=== PATIENT | female | born 1975 | race African-American/Black ===

== ENCOUNTER 2017-03-30 16:15 | Inpatient (IN) | payer OTHER ==
--- NOTE | 2017-03-30 16:44 | HP ---
Past Medical History - Admission Chief Complaint: impaction History of Present Illness: Pt is a 41 y/o female with SIUP at 38.6 weeks here for elective IOL and treatment of fecal impaction. Pt has been on stool softeners since approx 32 weeks and a bowel regimen of Miralax since 03/19. Pt was seen as an outpatient on 03/19 and given several enemas and attempt at disimpaction was completed under Stadol sedation. A minimal amount of stool was able to be removed. Since that time, the patient has developed large hemorrhoids and is still in significant pain from the impacted stool. Pt also AMA, otherwise itself uncomplicated. History Source: Patient Limitations to Obtaining History: No Limitations - Past Medical History Cardiovascular: No: AFIB, HTN, OR Pulmonary: No: Asthma, COPD Gastrointestinal: Yes: Constipation Hepatobiliary: No: Hepatitis B, Hepatitis C Reproductive: No: Polycystic Ovary Syndrome ...: 4 ...Para: 2 ...Term: 2 ...Induced : 1 ... Weeks Gestation by Dates: 38.6 Heme/Onc: No: Anemia Infectious Disease: No: AIDS, HIV Psych: No: Bipolar, Depression, Panic - Past Surgical History Past Surgical History: Yes: None Hx Myomectomy: No Hx Transabdominal Cerclage: No - Smoking History Smoking history: Never smoked Aproximately how many cigarettes per day: 0 - Alcohol/Substance Use Hx Alcohol Use: Yes (rarely) History of Substance Use: reports: None - Social History Usual Living Arrangement: Yes: With Spouse History of Recent Travel: No Home Medications - Allergies Allergies/Adverse Reactions: Allergies Allergy/AdvReac Type Severity Reaction Status Date / Time No Known Allergies Allergy Verified 03/30/17 16:52 - Home Medications Home Medications: Ambulatory Orders Vit/Iron Fumarate/FA [ Tablet] 1 tab PO DAILY 03/30/17 Review of Systems - Review of Systems Constitutional: reports: No Symptoms Eyes: reports: No Symptoms HENT: reports: No Symptoms Neck: reports: No Symptoms Cardiovascular: reports: No Symptoms Respiratory: reports: No Symptoms Gastrointestinal: reports: No Symptoms Genitourinary: reports: No Symptoms Breasts: reports: No Symptoms Reported Musculoskeletal: reports: No Symptoms Integumentary: reports: No Symptoms Neurological: reports: No Symptoms Endocrine: reports: No Symptoms Hematology/Lymphatic: reports: No Symptoms Psychiatric: reports: No Symptoms Physical Exam - Maternity Constitutional: Yes: Well Nourished, No Distress, Calm Eyes: Yes: Conjunctiva Clear, EOM Intact HENT: Yes: Atraumatic, Normocephalic Neck: Yes: Supple, Trachea Midline Cardiovascular: Yes: Regular Rate and Rhythm - Abdominal Exam/OB Number of Fetuses: Single Presentation: Vertex Contractions: Yes Regularity: Irregular Intensity: Mild/Mod Category: I Accelerations: Uniform Decelerations: None - Vaginal Exam/OB Vaginal Bleediing: No Amniotic Membrane Status: Intact Presentation: Vertex/Position - Physical Exam Edema: No Psychiatric: Yes: Alert, Oriented Hemorrhage Risk Assessment - Risk Factors Medium Risk Factors: Yes: None High Risk Factors: Yes: None Risk Score: 1 Risk Level: Medium Risk Assessment/Plan 41 y/o with SIUP at 38.6 weeks, here for induction of labor, also with severe constipation/stool impaction - FHTS cat 1 - stool impaction/constipation - discussed options with patient including attempt at disimpaction under epidural, delivery and disimpaction afterwards, possible delivery, mineral oil enemas overnight and start induction in the morning - pt and discussing. Will also consult GI. - GBS negative - to start IV fluids
[2017-03-30 17:14] VITALS: BMI 32.2
[2017-03-30] MEDS: DEXTROSE 5%-LACTATED RINGERS 1,000 ML IV SCH (18:00)
[2017-03-30] MEDS ORDERED: BUTORPHANOL TARTRATE 1 MG/ML VIAL IM PRN (18:15)
[2017-03-30] MEDS ORDERED: PROMETHAZINE HCL 25 MG/1 ML VIAL IVPB PRN ×2 (18:17→18:19)
--- NOTE | 2017-03-30 18:28 | PN ---
Progress Note (short form) - Note Progress Note: After discussion with patient and , pt desires to try enemas overnight tonight with pain medication/analgesia if needed and start induction in the a.m. Will start with soap suds enema, if no results, to try mineral oil. Stadol/ Phenergan PRN. Start IOL in a.m.
[2017-03-30 19:20] LABS: BASOPHIL 0.3 % (0-2.0); EOSINOPHIL 0.1 % (0-4.5); MCH 30.2 pg (25.7-33.7); MCHC 34.3 g/dl (32.0-36.0); MEAN CELL VOLUME 88.3 fl (80-96); MEAN PLT VOLUME 8.2 fl (7.5-11.1); NEUTROPHILS 69.7 % (42.8-82.8); PLATELET COUNT 179 K/MM3 (134-434); RDW 13.5 % (11.6-15.6)
[2017-03-30 19:35] LABS: INR 0.95 (0.82-1.09); PROTHROMBIN TIME (PATIENT) 10.7 SEC (9.98-11.88)
[2017-03-30 19:38] LABS: ACTIVATED PTT 28.5 SECONDS (26.9-34.4)
[2017-03-30 20:00] LABS: ANION GAP 10 (8-16); CALCIUM 8.4 mg/dL (8.5-10.1); CO2 21 mmol/L (21-32); CREATININE 0.4 mg/dL (0.55-1.02); GLUCOSE,RANDOM 64 mg/dL (74-106)
[2017-03-30] MEDS ORDERED: BUTORPHANOL TARTRATE 1 MG/ML VIAL ONE ×2 (20:45→20:46)
[2017-03-30] MEDS ORDERED: PROMETHAZINE HCL 25 MG/1 ML VIAL ONE (20:46)
[2017-03-31] MEDS: DEXTROSE 5%-LACTATED RINGERS 1,000 ML IV SCH (07:15)
[2017-03-31] MEDS: ELECTROLYTE-148 SOLN 1,000 ML IV SCH ×4 (08:30→16:44)
[2017-03-31] MEDS ORDERED: FENTANYL/BUPIVACAINE/NS/PF - PCEA - 50 ML DISP.SYRIN EP ONE (08:32)
--- NOTE | 2017-03-31 08:36 | PN ---
Progress Note (short form) - Note Progress Note: Pt failed soap suds enema last night and refused mineral oil enema. Pt still in a lot of discomfort rectally and cannot lay flat on her back or sit. Pt having irregular contractions overnight. Discussed case with anesthesia who will administer an epidural at this time, will attempt another enema and evacuatio of rectum, then start labor induction.
[2017-03-31] MEDS: FENTANYL/BUPIVACAINE/NS/PF - PCEA - 50 ML DISP.SYRIN EP SCH ×2 (08:45→13:15)
[2017-03-31] MEDS ORDERED: OXYTOCIN 15 UNITS/ LR 250 ML 15 UNIT/250 ML INFUS.BAG IVPB ONE (11:30)
[2017-03-31] MEDS ORDERED: OXYTOCIN 15 UNITS/ LR 250 ML 15 UNIT/250 ML INFUS.BAG IVPB SCH (11:30)
--- NOTE | 2017-03-31 13:38 | PN ---
Progress Note (short form) - Note Progress Note: Pt received epidural, after adequate pain relief, a mineral oil enema was administered and via transvaginal pressure the lower rectum was evacuated. A large amount of stool was evacuated. After evacuation, the cervix was examined and found to be 2-3cm dilated and soft. head palpated, station -3. Pt comfortable. Will await monitor baby and mom for 1-2 hours then start IOL with pitocin.
--- NOTE | 2017-03-31 13:41 | PN ---
Ante-Partal Exam - Subjective Subjective: Pt comfortable with epidural Vital Signs: Vital Signs Temperature 98.3 F 03/31/17 13:00 Pulse Rate 89 03/31/17 13:15 Respiratory Rate 20 03/31/17 13:15 Blood Pressure 93/70 03/31/17 13:15 O2 Sat by Pulse Oximetry (%) 99 03/31/17 13:15 Bleeding: No Headache: No Visual changes: No Right upper quadrant pain: No Pain (scale 1-10): 0 - Contractions Contractions: Yes Regularity: Irregular Intensity: Mild/Mod Monitor Mode: External - Exam during Labor Heart Rate: 130 Variability: Minimal Category: I Monitor Accelerations: Present Monitor Decelerations: None (had variable decelerations earlier, have resolved with resolution of hypotension) Exam: Vaginal Dilatation (cm): 3 Effacement (%): 50 Amniotic Membrane Status: Ruptured (AROM for clear fluid at this examination) Presentation: Vertex Station: -3 - Assessment/Plan Assessment/Plan: 41 y/o P2 with SIUP at 39 weeks, s/p fecal disimpaction and now IOL - FHTS cat 1 - IOL, s/p AROM, for pitocin as needed - GBS negative - anticipate - large hemorrhoid and ? anal fissure noted s/p disimpaction - will consult GI post
--- NOTE | 2017-03-31 13:59 | PN ---
Progress Note (short form) - Note Progress Note: GI NOte: Communicated with Dr Swift. She has already disempacted the patient who is currently being induced. She will withdraw this consult and recall us as needed.
--- NOTE | 2017-03-31 17:59 | PN ---
Ante-Partal Exam - Subjective Subjective: Pt comfortable, tolerating contractions. Vital Signs: Vital Signs Temperature 98.0 F 03/31/17 15:00 Pulse Rate 83 03/31/17 17:15 Respiratory Rate 20 03/31/17 17:15 Blood Pressure 111/67 03/31/17 17:15 O2 Sat by Pulse Oximetry (%) 99 03/31/17 17:15 Bleeding: Yes Bleeding Description: Mild Headache: No Visual changes: No Right upper quadrant pain: No Pain (scale 1-10): 0 - Contractions Contractions: Yes Regularity: Regular Monitor Mode: External - Exam during Labor Heart Rate: 130 Variability: Moderate Category: I Monitor Accelerations: Present Monitor Decelerations: None Exam: Vaginal Dilatation (cm): 4 Effacement (%): 50 Amniotic Membrane Status: Ruptured (AROM for clear fluid) Presentation: Vertex Station: -3 - Assessment/Plan Assessment/Plan: 41 y/o with SIUP, 39 weeks, IOL - FHTS cat 1 - IOL, s/p AROM, on pitocin - GBS negative - continue active management of labor
--- NOTE | 2017-03-31 21:12 | PN ---
Ante-Partal Exam - Subjective Subjective: Pt comfortable. Vital Signs: Vital Signs Temperature 98.3 F 03/31/17 20:00 Pulse Rate 76 03/31/17 20:30 Respiratory Rate 20 03/31/17 20:30 Blood Pressure 108/68 03/31/17 20:30 O2 Sat by Pulse Oximetry (%) 100 03/31/17 19:15 Bleeding: Yes Bleeding Description: Mild Headache: No Visual changes: No Right upper quadrant pain: No Pain (scale 1-10): 0 - Contractions Contractions: Yes Regularity: Regular Intensity: Mild/Mod - Exam during Labor Heart Rate: 130 Variability: Moderate Category: I Monitor Accelerations: Present Monitor Decelerations: None Exam: Vaginal Dilatation (cm): 5 Effacement (%): 70 Amniotic Membrane Status: Ruptured Presentation: Vertex Station: -2 - Assessment/Plan Assessment/Plan: Continue active management with pitocin anticipate
[2017-03-31] MEDS ORDERED: OXYTOCIN 20 UNITS in 0.9% NS 20 UNIT/1,000 ML INFUS.BAG IV ONE (23:13)
--- NOTE | 2017-04-01 | PN ---
Delivery - Delivery Vaginal Delivery: No Problems Type of Anesthesia: Epidural Episiotomy/Laceration: None EBL (cc): 300 Delivery, Single - Stages of Labor Date of Delivery: 03/31/17 Time of Delivery: 23:45 Date Placenta Delivered: 03/31/17 Time Placenta Delivered: 23:50 Placenta: Yes: Spontaneous - Condition of Senior Auditor/Manager Corporate Responsibility Present: No Gender: Male Position: Left, OA - 1 Minute Total Score: 9 5 Minutes Total Score: 9 - Feeding Plan Initial Plan: Elected not to breastfeed exclusively throughout hospitalization Remarks - Remarks Remarks: Uncomplicated of baby boy from KEVAN position across intact perineum anterior shoulder (right) delivered with ease along with remainder of cord clamped and cut mouth and nose bulb suctioned no laceration noted baby to well baby nursery mom stable sponge count correct
[2017-04-01] MEDS ORDERED: WITCH HAZEL 50% (TUCKS) 40 PAD/JAR PAD TP PRN (00:01)
[2017-04-01] MEDS ORDERED: BISACODYL 10 MG SUPP.RECT RC PRN (00:01)
[2017-04-01] MEDS ORDERED: BENZOCAINE 20% 57 GM BOTTLE TP PRN (00:01)
[2017-04-01] MEDS ORDERED: BENZOCAINE 28 GM HEMORRHOIDAL OINTMENT TP PRN (00:01)
[2017-04-01] MEDS ORDERED: METHYLERGONOVINE MALEATE 0.2 MG/1 ML AMP IM PRN (00:01)
[2017-04-01] MEDS ORDERED: HYDROCORTISONE 2.5% TOPICAL CREAM 30 GM TUBE PR PRN ×2 (00:03→08:00)
[2017-04-01] MEDS ORDERED: LIDOCAINE 2.5%/PRILOCAINE 2.5% (5 Gram/TUBE) TP PRN (00:05)
[2017-04-01] MEDS ORDERED: OXYTOCIN 20 UNITS in 0.9% NS 20 UNIT/1,000 ML INFUS.BAG IV SCH (00:15)
[2017-04-01] MEDS ORDERED: oxyCODONE HCL 5 MG TABLET ONE (01:19)
[2017-04-01] MEDS: oxyCODONE HCL 5 MG TABLET PO PRN (01:20)
[2017-04-01] MEDS ORDERED: OXYTOCIN 20 UNITS in 0.9% NS 20 UNIT/1,000 ML INFUS.BAG IV ONE (01:42)
[2017-04-01] MEDS: IBUPROFEN 600 MG TABLET (FP) PO PRN ×4 (04:31→21:22)
[2017-04-01] MEDS: ACETAMINOPHEN 325 MG TABLET (FP) PO PRN ×4 (04:31→21:22)
--- NOTE | 2017-04-01 06:47 | PN ---
Post Progress Note - Subjective Subjective: Pt seen/evaluated and doing well. Pain overall stable/controlled. C/o discomfort 2/2 hemorrhoids otherwise feeling well. Denies CP/SOB/F/C/MONAE. Type of Delivery: Vital Signs: Vital Signs Temperature 99.5 F 04/01/17 02:15 Pulse Rate 85 04/01/17 02:15 Respiratory Rate 20 04/01/17 02:15 Blood Pressure 118/66 04/01/17 02:15 O2 Sat by Pulse Oximetry (%) 100 04/01/17 01:30 Uterus: Yes: Fundus Firm, Fundus below umbilicus, Non-tender Abdomen/GI: Yes: Abdomen soft, Passing flatus. No: Abdominal Distention, Tender Lochia: Yes: Rubra Lochia, amount: Moderate (but stable and decreasing) Extremities: Yes: Calves non-tender. No: Edema Perineum: Yes: Intact Activity: Ambulating - Labs Labs: CBC WBC 5.0 K/mm3 (4.0-10.0) 03/30/17 18:00 RBC 3.92 M/mm3 (3.60-5.2) 03/30/17 18:00 Hgb 11.9 GM/dL (10.7-15.3) 03/30/17 18:00 Hct 34.6 % (32.4-45.2) 03/30/17 18:00 MCV 88.3 fl (80-96) 03/30/17 18:00 MCH 30.2 pg (25.7-33.7) 03/30/17 18:00 MCHC 34.3 g/dl (32.0-36.0) 03/30/17 18:00 RDW 13.5 % (11.6-15.6) 03/30/17 18:00 Plt Count 179 K/MM3 (134-434) 03/30/17 18:00 MPV 8.2 fl (7.5-11.1) 03/30/17 18:00 Neutrophils % 69.7 % (42.8-82.8) 03/30/17 18:00 Lymphocytes % 21.0 % (8-40) 03/30/17 18:00 Monocytes % 8.9 % (3.8-10.2) 03/30/17 18:00 Eosinophils % 0.1 % (0-4.5) 03/30/17 18:00 Basophils % 0.3 % (0-2.0) 03/30/17 18:00 Problem List - Problems (1) Normal vaginal delivery Code(s): O80 - ENCOUNTER FOR FULL-TERM UNCOMPLICATED DELIVERY (2) Hemorrhoids affecting or puerperium with complication Code(s): ECV3999 - (3) Hemorrhoids Code(s): K64.9 - UNSPECIFIED HEMORRHOIDS Assessment/Plan 41 y/o PPD#1 s/p normal , doing well - AFVSS - CBC this a.m. pending - regular diet, PO pain meds - hemorrhoids 2/2 significant constipation and need for bowel disimpaction prior to delivery- continue with bowel regimen and topical lidocaine/ hydrocoritsone for discomfort. If not improved in a.m. or if cause significant pain will have GI consulted for management
[2017-04-01] MEDS: MINERAL OIL 30 ML UNIT-DOSE CUP PO SCH (10:15)
[2017-04-01] MEDS: PRENATAL VITAMINS W/ FOLIC ACID TABLET (FP) PO SCH (10:34)
[2017-04-01 10:45] LABS: BASOPHIL 0.2 % (0-2.0); EOSINOPHIL 0.1 % (0-4.5); MCH 29.4 pg (25.7-33.7); MCHC 33.4 g/dl (32.0-36.0); MEAN PLT VOLUME 8.5 fl (7.5-11.1); NEUTROPHILS 81.5 % (42.8-82.8); PLATELET COUNT 147 K/MM3 (134-434); RDW 13.6 % (11.6-15.6); WHITE BLOOD COUNT 11.1 K/mm3 (4.0-10.0)
[2017-04-02] MEDS: ACETAMINOPHEN 325 MG TABLET (FP) PO PRN (02:55)
[2017-04-02] MEDS: IBUPROFEN 600 MG TABLET (FP) PO PRN (02:55)
--- NOTE | 2017-04-02 09:15 | DS ---
Physical Exam-FORKLIFT DRIVER Vital Signs: Vital Signs Temperature 98.2 F 04/01/17 21:41 Pulse Rate 92 H 04/01/17 21:41 Respiratory Rate 20 04/01/17 21:41 Blood Pressure 107/67 04/01/17 21:41 O2 Sat by Pulse Oximetry (%) 100 04/01/17 01:30 Constitutional: Yes: Well Nourished, No Distress Cardiovascular: Yes: WNL Gastrointestinal: Yes: WNL, Normal Bowel Sounds ...Rectal Exam: Yes: WNL ....Post : Yes: Uterus firm, Uterus non-tender Breast(s): Yes: WNL Musculoskeletal: Yes: WNL Extremities: Yes: WNL Edema: No Neurological: Yes: WNL, Alert, Oriented Labs: CBC, BMP 04/01/17 09:05 03/30/17 18:00 Delivery - Delivery Vaginal Delivery: No Problems Type of Anesthesia: Epidural Episiotomy/Laceration: None EBL (cc): 300 Delivery, Single - Stages of Labor Date 1st Stage Initiatied: 03/31/17 Time 1st Stage Initiated: 13:25 Date 2nd Stage Initiated: 03/31/17 Time 2nd Stage Initiated: 23:30 Date of Delivery: 03/31/17 Time of Delivery: 23:45 Time Placenta Delivered: 23:50 Placenta: Yes: Spontaneous - Condition of Infant Day Habilitation Supervisor/Ct Scan Special Procedures Technologist Present: No Infant Gender: Male Weight: 7 lb 8 oz Position: Left, OA Total Hours ROM (Hrs/Mins): 10 HOURS/20 MINUTES - 1 Minute Total Score: 9 5 Minutes Total Score: 9 - Feeding Plan Initial Plan: Elected not to breastfeed exclusively throughout hospitalization Discharge Summary Reason For Visit: INDUCTION OF LABOR Current Active Problems Hemorrhoids (Acute) Hemorrhoids affecting or puerperium with complication (Acute ) Normal vaginal delivery (Acute) Procedures: Principal: Normal vaginal delivery Condition: Good - Instructions Diet, Activity, Other Instructions: Physical activity Resume your normal everyday activity as tolerated but no heavy lifting or strenuous exercise until seen by your surgeon. You may walk unlimited amounts and climb stairs. You may resume driving the car when you feel safe and comfortable behind the wheel. No sexual activity as instructed for 6 weeks. You may shower daily and use sitz baths as instructed by the nurses, but do not soak in regular tubs/baths/pools until cleared by the doctor. Diet There are no dietary restrictions. Eat healthy, high-fiber foods. Drink 6 to 8 glasses of liquid each day. This will assist in keeping your bowels regular. Pain management You may take Tylenol or Ibuprofen (for example, Motrin, Advil etc.) as needed for pain. Call MD for any of the following: Severe pain not relieved by medication Fever of 101 or higher Excessive bleeding or drainage on dressing Inability to urinate Referrals: Nilda Swift DO [Staff Physician] - 1 Month (4-6 weeks after delivery) Disposition: HOME - Home Medications Comprehensive Discharge Medication List: Ambulatory Orders Vit/Iron Fumarate/FA [ Tablet] 1 tab PO DAILY 03/30/17 Ibuprofen [Motrin -] 600 mg PO QID PRN #28 tablet 04/02/17
--- NOTE | 2017-04-02 09:17 | PN ---
Progress Note (SOAP) - Subjective Chief Complaint: pt doing well - Current Medications Current Medications: Active Medications Acetaminophen (Tylenol -) 650 mg PO Q3H PRN PRN Reason: PAIN Last Admin: 04/02/17 02:55 Dose: 650 mg Benzocaine (Americaine 20% [place] -) 1 spray TP PRN PRN PRN Reason: PAIN Benzocaine (Americaine Ointment -) 1 applic TP PRN PRN PRN Reason: PAIN Fentanyl/Bupivacaine/Sodium Chlor (Bupivicaine 0.125%/Fentanyl 2mcg/Ml Pcea -) 50 ml EP ASDIR BLANCA PRN Reason: Protocol Last Admin: 03/31/17 13:15 Dose: 50 ml Hydrocortisone (Anusol 2.5% Hc Cream -) 1 applic IN Q8H PRN PRN Reason: HEMORRHOIDS Parenteral Electrolytes (Plasma-Lyte 148 -) 1,000 mls @ 125 mls/hr IV ASDIR [facility] Last Admin: 03/31/17 16:44 Dose: 125 mls/hr Oxytocin/Sodium Chloride (Normal Saline+20 Units Oxytocin -) 20 unit in 1,000 mls @ 125 mls/hr IV ASDIR [facility] Ibuprofen (Motrin -) 600 mg PO Q4H PRN PRN Reason: PAIN Last Admin: 04/02/17 02:55 Dose: 600 mg Lidocaine/Prilocaine (Emla -) 1 applic TP Q8H PRN PRN Reason: PAIN Methylergonovine Maleate (Methergine Injection -) 0.2 mg IM Q4H PRN PRN Reason: EXCESSIVE BLEEDING (L&D) Mineral Oil (Mineral Oil -) 30 ml PO DAILY [facility] Last Admin: 04/01/17 10:15 Dose: 30 ml Oxycodone HCl (Roxicodone -) 5 mg PO Q6H PRN PRN Reason: PAIN Last Admin: 04/01/17 01:20 Dose: 5 mg Multivit/Folic Acid/Iron ( Vitamins (Sjr) -) 1 tab PO DAILY [facility] Last Admin: 04/01/17 10:34 Dose: Not Given Senna/Docusate Sodium (Pericolace -) 2 tablet PO HS PRN PRN Reason: CONSTIPATION Last Admin: 04/02/17 03:55 Dose: 2 tablet Witch Yin/Glycerin (Tucks Pads -) 1 pad TP PRN PRN PRN Reason: PAIN - Objective Vital Signs: Vital Signs Temperature 98.2 F 04/01/17 21:41 Pulse Rate 92 H 04/01/17 21:41 Respiratory Rate 20 04/01/17 21:41 Blood Pressure 107/67 04/01/17 21:41 O2 Sat by Pulse Oximetry (%) 100 04/01/17 01:30 Constitutional: Yes: Well Nourished, No Distress Respiratory: Yes: WNL, Regular ....Post : Yes: Uterus firm, Uterus non-tender Musculoskeletal: Yes: WNL Extremities: Yes: WNL Edema: Yes Edema: LLE: Trace, RLE: Trace Neurological: Yes: WNL, Alert, Oriented Labs Lab Results: CBC, BMP 04/01/17 09:05 03/30/17 18:00 Assessment/Plan SP Plan DC home RTo 4 wk
[2017-04-02] MEDS: oxyCODONE HCL 5 MG TABLET PO PRN (09:19)
[2017-04-02] MEDS: FENTANYL/BUPIVACAINE/NS/PF - PCEA - 50 ML DISP.SYRIN EP SCH (09:20)
[2017-04-02] MEDS: ELECTROLYTE-148 SOLN 1,000 ML IV SCH (09:20)
[2017-04-02 09:24] VITALS: BP 116/77; PULSE 88; TEMP 98.1
[2017-04-02] MEDS: PRENATAL VITAMINS W/ FOLIC ACID TABLET (FP) PO SCH (09:41)
[2017-04-02] MEDS: MINERAL OIL 30 ML UNIT-DOSE CUP PO SCH (10:42)
[2017-04-02] MEDS ORDERED: POLYETHYLENE GLYCOL 3350 119 GM BTL PO SCH (10:45)
--- NOTE | 2017-04-02 12:13 | CON.GI ---
Consult Consult Specialty:: Gastroenterology Referred by:: Dr Haley Reason for Consultation:: Constipation - History of Present Illness Chief Complaint: Constipation and tender hemorrhoids History of Present Illness: 41F has not moved her bowels for over 3 days despite Miralax. She had to be fecally disempacted under epidural anesthesia on 03/30 when the impaction interfered with cervical examination. She has not moved her bowels since undergoing induction and delivery of her child. She has chronic constipation. She has never had a colonoscopy. NO FH of colon cancer. No abdominal surgeries. - History Source History Provided By: Patient Limitations to Obtaining History: No Limitations - Past Medical History Cardio/Vascular: No: AFIB, HTN, PR Pulmonary: No: Asthma, COPD Gastrointestinal: Yes: Constipation Hepatobiliary: No: Hepatitis B, Hepatitis C Infectious Disease: No: AIDS, HIV Psych: No: Bipolar, Depression, Panic - Past Surgical History Past Surgical History: Yes: None - Alcohol/Substance Use Hx Alcohol Use: Yes (rarely) History of Substance Use: reports: None - Smoking History Smoking history: Never smoked Have you smoked in the past 12 months: No Aproximately how many cigarettes per day: 0 - Social History Usual Living Arrangement: With Spouse ADL: Independent Place of : [facility] Came to [place] (year[place] cames to [facility] age 19 History of Recent Travel: No Home Medications - Allergies Allergies/Adverse Reactions: Allergies Allergy/AdvReac Type Severity Reaction Status Date / Time No Known Allergies Allergy Verified 03/30/17 16:52 - Home Medications Home Medications: Ambulatory Orders Vit/Iron Fumarate/FA [ Tablet] 1 tab PO DAILY 03/30/17 Ibuprofen [Motrin -] 600 mg PO QID PRN #28 tablet 04/02/17 Family Disease History - Family Disease History Family Disease History: Diabetes: Mother, Other: Father (healthy) Review of Systems - Review of Systems Constitutional: reports: No Symptoms Eyes: reports: No Symptoms HENT: reports: No Symptoms Neck: reports: No Symptoms Cardiovascular: reports: No Symptoms Respiratory: reports: No Symptoms Gastrointestinal: reports: Abdominal Pain, Constipation, Other (rectal pain) Integumentary: reports: No Symptoms Neurological: reports: No Symptoms Endocrine: reports: No Symptoms Physical Exam-GI Vital Signs: Vital Signs Temperature 98.1 F 04/02/17 09:18 Pulse Rate 88 04/02/17 09:18 Respiratory Rate 20 04/02/17 09:18 Blood Pressure 116/77 04/02/17 09:18 O2 Sat by Pulse Oximetry (%) 100 04/01/17 01:30 CBC,CMP WBC 11.1 K/mm3 (4.0-10.0) H D 04/01/17 09:05 RBC 3.61 M/mm3 (3.60-5.2) 04/01/17 09:05 Hgb 10.6 GM/dL (10.7-15.3) L D 04/01/17 09:05 Hct 31.8 % (32.4-45.2) L 04/01/17 09:05 MCV 88.0 fl (80-96) 04/01/17 09:05 MCH 29.4 pg (25.7-33.7) 04/01/17 09:05 MCHC 33.4 g/dl (32.0-36.0) 04/01/17 09:05 RDW 13.6 % (11.6-15.6) 04/01/17 09:05 Plt Count 147 K/MM3 (134-434) 04/01/17 09:05 MPV 8.5 fl (7.5-11.1) 04/01/17 09:05 Neutrophils % 81.5 % (42.8-82.8) 04/01/17 09:05 Lymphocytes % 11.8 % (8-40) D 04/01/17 09:05 Monocytes % 6.4 % (3.8-10.2) 04/01/17 09:05 Eosinophils % 0.1 % (0-4.5) 04/01/17 09:05 Basophils % 0.2 % (0-2.0) 04/01/17 09:05 Sodium 136 mmol/L (136-145) 03/30/17 18:00 Potassium 3.7 mmol/L (3.5-5.1) 03/30/17 18:00 Chloride 105 mmol/L (98-107) 03/30/17 18:00 Carbon Dioxide 21 mmol/L (21-32) 03/30/17 18:00 Anion Gap 10 (8-16) 03/30/17 18:00 BUN 7 mg/dL (7-18) 03/30/17 18:00 Creatinine 0.4 mg/dL (0.55-1.02) L 03/30/17 18:00 Random Glucose 64 mg/dL (74-106) L 03/30/17 18:00 Calcium 8.4 mg/dL (8.5-10.1) L 03/30/17 18:00 Current Medications Generic Name Dose Route Start Last Admin Trade Name Freq PRN Reason Stop Dose Admin Acetaminophen 650 mg 04/01/17 00:01 04/02/17 02:55 Tylenol - PO 650 mg Q3H PRN Administration PAIN Benzocaine 1 spray 04/01/17 00:01 Americaine 20% [place] - TP PRN PRN PAIN Benzocaine 1 applic 04/01/17 00:01 Americaine Ointment - TP PRN PRN PAIN Fentanyl/Bupivacaine/Sodium Chlor 50 ml 03/31/17 09:15 04/02/17 09:20 Bupivicaine 0.125%/Fentanyl 2mcg/Ml Pcea - EP Not Given [facility]IR [facility] Protocol Hydrocortisone 1 applic 04/01/17 08:00 Anusol 2.5% Hc Cream - ME Q8H PRN HEMORRHOIDS Parenteral Electrolytes 1,000 mls @ 125 mls/hr 03/31/17 09:00 04/02/17 09:20 Plasma-Lyte 148 - IV Not Given [facility]IR [facility] Oxytocin/Sodium Chloride 20 unit in 1,000 mls @ 125 mls/hr 04/01/17 00:15 03/09 09:40 Normal Saline+20 Units Oxytocin - IV Not Given [facility]IR [facility] Ibuprofen 600 mg 04/01/17 00:01 04/02/17 02:55 Motrin - PO 600 mg Q4H PRN Administration PAIN Lidocaine/Prilocaine 1 applic 04/01/17 00:05 Emla - TP Q8H PRN PAIN Methylergonovine Maleate 0.2 mg 04/01/17 00:01 Methergine Injection - IM Q4H PRN EXCESSIVE BLEEDING (L&D) Oxycodone HCl 5 mg 04/01/17 00:01 04/02/17 09:19 Roxicodone - PO 5 mg Q6H PRN Administration PAIN Polyethylene Glycol 17 gm 04/02/17 10:45 04/02/17 11:46 Miralax (For Daily Use) - PO 17 gm BID BLANCA Administration Multivit/Folic Acid/Iron 1 tab 04/01/17 10:00 04/02/17 09:41 Vitamins (Sjr) - PO 1 tab DAILY BLANCA Administration Senna/Docusate Sodium 2 tablet 04/02/17 22:00 04/02/17 03:55 Pericolace - PO 2 tablet HS PRN Administration CONSTIPATION Witch Yin/Glycerin 1 pad 04/01/17 00:01 Tucks Pads - TP PRN PRN PAIN Constitutional: Yes: Well Nourished Eyes: Yes: Conjunctiva Clear HENT: Yes: Normocephalic Neck: Yes: Supple Cardiovascular: Yes: Regular Rate and Rhythm Respiratory: Yes: CTA Bilaterally Gastrointestinal Inspection: Yes: Distention ...Auscultate: Yes: Normoactive Bowel Sounds ...Palpate: Yes: Soft, Other (nontender) ...Percussion: Yes: Tympanitic ...Rectal Exam: Yes: Hemorrhoids/External (large tender hemorrhoids and skin tag buut no thrombosis, Unable to examine rectal vault due to hemrorhoidal tenderness. Cannot exclude a fissure) Labs: CBC, BMP 04/01/17 09:05 03/30/17 18:00 INR, PTT INR 0.95 (0.82-1.09) 03/30/17 18:00 Problem List - Problems (1) Constipation by delayed colonic transit Assessment/Plan: Chronic constipation complicated by component of obstruction by uterus compression rectosigmnoid and by impacted feces aggravated by iron in vitamins. I advised taking Miralax q4h while awake and as much locomotion as she can tolerate. If constipation persists will give Golytely lavage Code(s): K59.01 - SLOW TRANSIT CONSTIPATION (2) Hemorrhoids affecting or puerperium with complication Assessment/Plan: I advised Sitz baths with epsom salt then application of Anusol HC after each defecation and at least once a day. This should also help heal a fissure. I gave her my business card to followup in my office as needed. Code(s): EIZ8693 -
[2017-04-02] MEDS ORDERED: SENNOSIDES/DOCUSATE COMBO (SENNA PLUS) TABLET (UD) PO PRN (22:00)
== END 2017-04-02 13:43 | disposition home or self-care (01) | DRG 560 ==
LOC: JLDR 16:15 → J3W 04-01 02:15
PROVIDERS: ADMIT Obstetrics & Gynecology; ATTEND Obstetrics & Gynecology
PROC: 10E0XZZ Delivery of Products of Conception, External Approach (ICD-10-PCS; principal; 2017-03-31)
DX: O75.89 Other specified complications of labor and delivery (principal); K64.8 Other hemorrhoids; O90.89 Other complications of the puerperium, not elsewhere classified; K59.01 Slow transit constipation; Z3A.38 38 weeks gestation of pregnancy; Z37.0 Single live birth
CPT/HCPCS: 36415; 59409; 80048; 85025; 85610; 85730; 86593; 86850; 86900; 86901